=== PATIENT | female | born 1965 | race Caucasian/White ===

== ENCOUNTER 2020-10-23 12:31 | Inpatient (IN) | payer BC, SELFPAY ==
[~2020-10-23] VITALS: Ht 162.6 cm; Wt 65.8 kg
[~2020-10-23 12:31] MED LIST: BUPIVACAINE /EPINEPHRINE/PF 0.25% 30 ML VIAL INJ ONE; LR 1,000 ML IV.SOLN IV ONE; NS 1000 ML IV.SOLN IV ONE; NS IRRIG SOLN 1000 ML IR ONE; ONDANSETRON HCL 4 MG/2 ML VIAL IVP ONE; PROPOFOL 200MG/ 20ML VIAL (DIPRIVAN) IV ONE; ROCURONIUM BROMIDE 10 MG/ML (ZEMURON) IV ONE; SEVOFLURANE 15 MIN GAS INH ONE; SUCCINYLCHOLINE CHLORIDE 20 MG/ML(QUELICIN) IVP ONE; fentaNYL CITRATE/PF 100 MCG/2 ML AMP IVP ONE
--- NOTE | 2020-10-23 12:36 | NUR ---
Placed in room 05 . Placed on quality assurance monitor final, blood pressure machine and pulse oximeter. To gown for exam. Side rails up.
--- NOTE | 2020-10-23 12:38 | NUR ---
Pt brought by partner, A&Ox4, pt presents to ER with abdominal pain/nausea, pt also c/o back pain after hitting a corner of a counter yesterday , skin pink and warm, cap refill <3, VSS, respirations even and unlabored, cap refill <3, will cont to monitor.
[2020-10-23 12:40] VITALS: BP_SYST 175
--- NOTE | 2020-10-23 12:40 | NUR ---
ER at bedside examining patient.
[2020-10-23] MEDS ORDERED: IBUPROFEN 800 MG TABLET PO ONE (12:45)
[2020-10-23] MEDS ORDERED: ALPRAZolam 0.25 MG TABLET PO ONE (12:45)
--- NOTE | 2020-10-23 13:00 | NUR ---
Lab at bedside
[2020-10-23 13:01] LABS: BILIRUBIN,URINE NEGATIVE (NEGATIVE); BLOOD, URINE NEGATIVE (NEGATIVE); CLARITY/URINE CLEAR (CLEAR); COLOR,URINE YELLOW (YELLOW); GLUCOSE,URINE NEGATIVE (NEGATIVE); KETONES,URINE 3+ (NEGATIVE); LEUKOCYTE ESTERASE ,URINE NEGATIVE (NEGATIVE); NITRITE, URINE NEGATIVE (NEGATIVE); PH,URINE 7.5 (5.0-8.0); PROTEIN URINE 1+ (NEGATIVE); UROBILINOGEN,URINE 0.2 (0.2-1.0)
--- NOTE | 2020-10-23 13:16 | NUR ---
Patient transported to radiology via wheelchair, accompanied by staff.
[2020-10-23 13:21] LABS: ANION GAP 13 (5-15); BASOPHILS % (AUTO) 0.2 % (0.0-2.0); CALCIUM 9.1 mg/dL (8.4-11.0); CHLORIDE 103 mmol/L (98-107); CREATININE 0.78 mg/dL (0.55-1.30); EOSINOPHILS % (AUTO) 0.1 % (0.0-4.0); GLUCOSE 117 mg/dL (70-99); HEMATOCRIT 39.2 % (36-48); HEMOGLOBIN 13.5 g/dL (12.0-16.0); LYMPHOCYTES # (AUTO) 0.8 K/uL (1.0-5.5); LYMPHOCYTES % (AUTO) 7.1 % (20.5-51.5); MEAN CORPUSCULAR HEMOGLOBIN 32 pg (27-31); MEAN CORPUSCULAR HGB CONC 34 % (32-36); MEAN CORPUSCULAR VOLUME 93 fL (79.0-98.0); MONOCYTES # (AUTO) 0.4 K/uL (0.0-1.0); MONOCYTES % (AUTO) 3.4 % (1.7-9.3); NEUTROPHILS # (AUTO) 10.5 K/uL (1.8-7.7); NEUTROPHILS % (AUTO) 89.2 % (40.0-70.0); PLATELET COUNT (AUTO) 203 K/uL (130-430); RED BLOOD CELL COUNT(AUTO) 4.22 MIL/uL (4.2-6.2); RED CELL DISTRIBUTION WIDTH 12.2 % (9.0-15.0); SODIUM SERUM 139 mmol/L (136-145); UREA NITROGEN, BLOOD 18 mg/dL (8-21); WHITE BLOOD COUNT (AUTO) 11.8 K/uL (4.8-10.8)
[2020-10-23 13:24] LABS: PROTHROMBIN TIME 10.7 SECS (9.5-12.5)
[2020-10-23 13:27] LABS: ALANINE AMINOTRANSFERASE 25 U/L (12-78); ALBUMIN 4.1 g/dL (3.4-4.8); AMYLASE 56 U/L (0-100); ASPARTATE AMINOTRANSFERASE 17 U/L (10-37); LIPASE 58 U/L (73-393); TOTAL BILIRUBIN 0.7 mg/dL (0.0-1.0)
[2020-10-23 13:30] LABS: BACTERIA,URINE FEW /HPF (None Seen); RBC,URINE 0-3 /HPF (0-3); WBC,URINE 0-3 /HPF (0-3)
[2020-10-23 13:31] LABS: GFR AFRICAN AMERICAN 98 mL/min (>90)
[2020-10-23 13:42] LABS: C-REACTIVE PROTEIN QUANT < 0.2 mg/dL (0-0.5)
[2020-10-23] MEDS ORDERED: PIPERACILLIN/TAZO 3.38 GM in NS 50 ML IV ONE (14:00)
[2020-10-23] MEDS ORDERED: metroNIDAZOLE 500 mg/NS 100 ML IV ONE (14:00)
[2020-10-23] MEDS ORDERED: NACL 0.9% 1,000 ML IV ONE (14:00)
[2020-10-23] MEDS ORDERED: MORPHINE 2 MG/ML INJ. SYRINGE IVP ONE (14:00)
[2020-10-23] MEDS ORDERED: D5NS 1,000 ML IV SCH (14:00)
[2020-10-23] MEDS ORDERED: ONDANSETRON HCL 4 MG/2 ML VIAL IVP PRN (14:00)
--- NOTE | 2020-10-23 14:05 | NUR ---
EKG, covid and MRSA swab done
[2020-10-23] MEDS ORDERED: PIPERACILLIN/TAZOBACTAM 3.375 GM/VIAL (ZOSYN) IV ONE (14:23)
--- NOTE | 2020-10-23 14:37 | NUR ---
medicated w/ Morphine IVP per md order. Will reassess
--- NOTE | 2020-10-23 14:42 | NUR ---
pt. belongings done, pt takes no home meds
--- NOTE | 2020-10-23 15:26 | NUR ---
Patient will be admitted to care of Dr. Davies Admitted to med surg unit. Will go to room 117B. Belongings list completed. Complete and up to date summary report printed. SBAR report to be given at bedside with opportunity for questions.
--- NOTE | 2020-10-23 15:35 | NUR ---
ADMISSION NOTE Received patient from ER via heather, received report from PEELED POTATO INSPECTOR. Patient admitted with diagnosis of Appendicitis. Patient oriented to hospital routine, call light, toileting and safety-patient verbalized understanding.
[2020-10-23 16:14] VITALS: BP_SYST 141
--- NOTE | 2020-10-23 16:26 | NUR ---
CONSULTATION PAGED/CALLED Reason for Consultation: [] hosp mgmt Person Who was Notified: [] MATILDE Consulting Physician: [] DR Tim WAY Cotton Puller Specialty: [] HOSPITALIST Ordering Physician: [] DR CLAROS
--- NOTE | 2020-10-23 16:39 | NUR ---
CONSULTATION PAGED/CALLED Reason for Consultation: medical management Person Who was Notified: waldo Consulting Physician: casi brody Ordering Physician: karthik molina
[2020-10-23] MEDS: MORPHINE 2 MG/ML INJ. SYRINGE IVP PRN (17:26)
[2020-10-23] MEDS ORDERED: PANTOPRAZOLE SODIUM 40 MG/VIAL (PROTONIX) IVP ONE (17:30)
[2020-10-23] MEDS: PIPERACILLIN/TAZO 3.375/DEX-IS 50 ML IV SCH ×2 (17:39→23:02)
--- NOTE | 2020-10-23 18:52 | NUR ---
CLOSING NOTES: PATIENT RESTING IN BED. NO SIGNS OF ACUTE DISTRESS NOTED. FALL AND SAFETY PRECAUTION REINFORCED. CALL LIGHT WITHIN REACH.
--- NOTE | 2020-10-23 19:30 | NUR ---
Opening notes Received report. Patient is resting in bed, no signs of distress noted. Breathing even and unlabored on room air. Patient complains of pain, prn pain medication to be administered. IVF infusing well. Patient ambulatory with steady gait. Family at bedside. No other needs. Call light with the patient. Safety precautions in place.
[2020-10-23 20:00] VITALS: BP_SYST 158
[2020-10-23] MEDS: MORPHINE 4 MG INJ. 4 MG/ML VIAL IVP PRN (20:35)
--- NOTE | 2020-10-23 20:40 | NUR ---
CT SCAN Patient off to CT scan via wheelchair accompanied by on site wastewater systems technician. No signs of distress noted.
--- NOTE | 2020-10-23 21:20 | NUR ---
Spoke with Dr. Tao Informed of CTAP with contrast results. Doctor stated he will do surgery tomorrow and will call seasonal warehouse associate for surgery schedule. Also informed doctor of patient HR 45. Orders for stat EKG and to have patient medically cleared.
--- NOTE | 2020-10-23 21:20 | NUR ---
paged paged doctor solitario
[2020-10-23] MEDS ORDERED: TEMAZEPAM 7.5 MG CAPSULE PO PRN (21:30)
--- NOTE | 2020-10-23 22:50 | NUR ---
Spoke with Dr. Tucker Mccall MD about patient EKG results. stated that is patient's baseline and she is medically cleared for surgery tomorrow morning. No need for cardio consult.
[2020-10-23] MEDS: ONDANSETRON HCL 4 MG/2 ML VIAL IVP PRN (22:52)
[2020-10-23] MEDS: D5LR 1,000 ML IV SCH (22:52)
[2020-10-24] VITALS (11 sets, daily range): BP systolic 122–155
[2020-10-24] MEDS: MORPHINE 4 MG INJ. 4 MG/ML VIAL IVP PRN ×4 (00:36→22:44)
[2020-10-24] MEDS: D5LR 1,000 ML IV SCH ×4 (01:40→22:33)
[2020-10-24] MEDS: PIPERACILLIN/TAZO 3.375/DEX-IS 50 ML IV SCH ×4 (05:25→23:09)
[2020-10-24] MEDS: PANTOPRAZOLE SODIUM 40 MG/VIAL (PROTONIX) IVP SCH ×2 (05:25→17:17)
[2020-10-24 06:51] LABS: BASOPHILS % (AUTO) 0.1 % (0.0-2.0); EOSINOPHILS % (AUTO) 0.1 % (0.0-4.0); HEMATOCRIT 37.1 % (36-48); HEMOGLOBIN 12.6 g/dL (12.0-16.0); LYMPHOCYTES # (AUTO) 0.5 K/uL (1.0-5.5); LYMPHOCYTES % (AUTO) 5.2 % (20.5-51.5); MEAN CORPUSCULAR HEMOGLOBIN 32 pg (27-31); MEAN CORPUSCULAR HGB CONC 34 % (32-36); MEAN CORPUSCULAR VOLUME 94 fL (79.0-98.0); MONOCYTES # (AUTO) 0.6 K/uL (0.0-1.0); MONOCYTES % (AUTO) 6.1 % (1.7-9.3); NEUTROPHILS % (AUTO) 88.5 % (40.0-70.0); PLATELET COUNT (AUTO) 134 K/uL (130-430); RED BLOOD CELL COUNT(AUTO) 3.97 MIL/uL (4.2-6.2); RED CELL DISTRIBUTION WIDTH 12.4 % (9.0-15.0)
--- NOTE | 2020-10-24 07:07 | NUR ---
Closing notes Patient is resting in bed, no signs of distress noted. Breathing even and unlabored on room air. No complaints of pain at this time. IVF infusing well. NPO status maintained. All needs met throughout the shift. call light with the patient. Safety precautions in place. Care endorsed to day shift RN.
[2020-10-24 07:32] LABS: ALBUMIN 3.3 g/dL (3.4-4.8); C-REACTIVE PROTEIN QUANT 2.1 mg/dL (0-0.5); CREATININE 0.79 mg/dL (0.55-1.30); POTASSIUM 3.4 mmol/L (3.5-5.1); TOTAL BILIRUBIN 1.3 mg/dL (0.0-1.0)
[2020-10-24] MEDS: ONDANSETRON HCL 4 MG/2 ML VIAL IVP PRN ×2 (07:35→16:08)
--- NOTE | 2020-10-24 07:35 | NUR ---
A/OX4, BUT C/O 6/10 PAIN AT THE LOWER LEFT ABDOMEN. MORPHINE 2MG IS GIVEN. CHG BATH IS PROVIDED. ON RA. CALL LIGHT IN PLACE, BED LOCKED AT THE LOWEST POSITION, WILL CONTINUE TO MONITOR.
[2020-10-24] MEDS: MORPHINE 2 MG/ML INJ. SYRINGE IVP PRN ×2 (07:36→16:16)
[2020-10-24 08:58] LABS: ERYTHROCYTE SEDIMENTATION RATE 11 MM/HR (0-20)
--- NOTE | 2020-10-24 09:20 | NUR ---
PATIENT IS TAKEN TO OR. DR. CLAROS AND DR. INFANTE AT BEDSIDE TO DISCUSS ON POC.
[2020-10-24] MEDS ORDERED: NALOXONE HCL 0.4 MG/ML AMP (NARCAN) IVP PRN (10:15)
[2020-10-24] MEDS ORDERED: METOCLOPRAMIDE HCL 10 MG/2 ML VIAL IVP PRN (10:15)
[2020-10-24] MEDS ORDERED: MEPERIDINE HCL/PF 25 MG/ML DISP.SYRIN IVP PRN (10:15)
[2020-10-24] MEDS ORDERED: HYDROmorphone 1 MG/ML INJ. CARTRIDGE IVP PRN (10:15)
[2020-10-24] MEDS ORDERED: KETOROLAC TROMETHAMINE 30 MG VIAL IVP PRN (10:15)
[2020-10-24] MEDS ORDERED: KETOROLAC TROMETHAMINE 30 MG VIAL ONE (11:35)
--- NOTE | 2020-10-24 12:10 | NUR ---
patient has returned from OR. V/S stable at this time.
--- NOTE | 2020-10-24 12:30 | NUR ---
FAMILY AT BEDSIDE. NO SIGNS OF DISTRESS NOTED.
[2020-10-24] MEDS ORDERED: POTASSIUM CHLORIDE 20 MEQ TAB.PRT.SR PO ONE (15:45)
--- NOTE | 2020-10-24 17:00 | NUR ---
patient c/o right abdominal pain despite of 2mg morphine. 4 mg morphine is given. Will reassess.
[2020-10-24] MEDS: traMADol HCL HCL 50 MG TABLET (ULTRAM) PO SCH ×2 (17:18→23:09)
--- NOTE | 2020-10-24 17:30 | NUR ---
patient is resting at this time. No signs of distress noted.
--- NOTE | 2020-10-24 21:20 | NUR ---
PT AMBULATED TO THE BATHROOM TO URINATE AND BACK TO BED WITH STABLE GAIT.
--- NOTE | 2020-10-24 22:44 | NUR ---
MORPHINE 4MG GIVEN IV FOR C/O 810 ABDOMINAL INCISIONAL PAIN. PT DECLINED BED ALARM. PT WAS INSTRUCTED TO CALL FOR ASSISTANCE BEFORE GETTING OUT OF BED IF SHE FEELS DIZZY OR DROWSY AND PT VERBALIZED UNDERSTANDING. CALL LIGHT IS WITH PT AND BED IS IN THE LOWEST AND LOCKED POSITIONS.
[2020-10-25] VITALS: BP_SYST 132
[2020-10-25] MEDS: PANTOPRAZOLE SODIUM 40 MG/VIAL (PROTONIX) IVP SCH ×2 (06:17→17:11)
[2020-10-25] MEDS: PIPERACILLIN/TAZO 3.375/DEX-IS 50 ML IV SCH ×3 (06:17→17:12)
[2020-10-25] MEDS: traMADol HCL HCL 50 MG TABLET (ULTRAM) PO SCH ×3 (06:17→17:12)
[2020-10-25 07:58] VITALS: BP_SYST 145
[2020-10-25 08:14] LABS: BASOPHILS % (AUTO) 0.5 % (0.0-2.0); EOSINOPHILS % (AUTO) 0.4 % (0.0-4.0); HEMATOCRIT 32.5 % (36-48); HEMOGLOBIN 11.1 g/dL (12.0-16.0); LYMPHOCYTES # (AUTO) 0.9 K/uL (1.0-5.5); LYMPHOCYTES % (AUTO) 14.7 % (20.5-51.5); MEAN CORPUSCULAR HEMOGLOBIN 32 pg (27-31); MEAN CORPUSCULAR HGB CONC 34 % (32-36); MEAN CORPUSCULAR VOLUME 95 fL (79.0-98.0); MONOCYTES # (AUTO) 0.4 K/uL (0.0-1.0); NEUTROPHILS % (AUTO) 78.4 % (40.0-70.0); PLATELET COUNT (AUTO) 110 K/uL (130-430); RED BLOOD CELL COUNT(AUTO) 3.44 MIL/uL (4.2-6.2); RED CELL DISTRIBUTION WIDTH 12.6 % (9.0-15.0); WHITE BLOOD COUNT (AUTO) 6.3 K/uL (4.8-10.8)
[2020-10-25 08:30] LABS: ALBUMIN 2.8 g/dL (3.4-4.8); CREATININE 0.69 mg/dL (0.55-1.30); POTASSIUM 3.3 mmol/L (3.5-5.1); TOTAL BILIRUBIN 1.2 mg/dL (0.0-1.0)
[2020-10-25] MEDS: D5LR 1,000 ML IV SCH (08:34)
[2020-10-25] MEDS: MORPHINE 2 MG/ML INJ. SYRINGE IVP PRN ×2 (08:38→21:03)
[2020-10-25] MEDS ORDERED: POTASSIUM CHLORIDE 20 MEQ TAB.PRT.SR PO ONE (10:15)
[2020-10-25] MEDS: ACETAMINOPHEN 325 MG TABLET PO PRN ×2 (11:45→17:12)
[2020-10-25 12:00] VITALS: BP_SYST 166
[2020-10-25 16:00] VITALS: BP_SYST 150
--- NOTE | 2020-10-25 18:55 | NUR ---
Note Pt has been ambulating in room and to restroom with IV pole and steady gait. Pt's 3 lap sites intact and dressing CDI. Pt's IV intact and patent right forearm. Pt checked on q1' and PRN all shift for needs and care. Dr Tao was at pt's bedside explaining surgery outlook and plan of care. Pt's pain tolerable at this time. Pt encouraged to use IS 10X q1' while awake. Pt able to tolerate Full liquids diet all shift. No needs noted at this time. Call light within reach.
[2020-10-25] MEDS: D5NS 1,000 ML IV SCH (18:57)
[2020-10-26] MEDS: PIPERACILLIN/TAZO 3.375/DEX-IS 50 ML IV SCH ×3 (00:54→12:02)
[2020-10-26] MEDS: traMADol HCL HCL 50 MG TABLET (ULTRAM) PO SCH ×3 (06:00→12:02)
[2020-10-26] MEDS: D5NS 1,000 ML IV SCH ×2 (06:37→12:01)
[2020-10-26] MEDS: PANTOPRAZOLE SODIUM 40 MG/VIAL (PROTONIX) IVP SCH (06:37)
[2020-10-26 07:07] LABS: BASOPHILS % (AUTO) 0.7 % (0.0-2.0); EOSINOPHILS # (AUTO) 0.1 K/uL (0.0-0.4); EOSINOPHILS % (AUTO) 2.5 % (0.0-4.0); HEMATOCRIT 34.3 % (36-48); HEMOGLOBIN 11.7 g/dL (12.0-16.0); LYMPHOCYTES # (AUTO) 1.3 K/uL (1.0-5.5); LYMPHOCYTES % (AUTO) 23.2 % (20.5-51.5); MEAN CORPUSCULAR HEMOGLOBIN 32 pg (27-31); MEAN CORPUSCULAR HGB CONC 34 % (32-36); MEAN CORPUSCULAR VOLUME 95 fL (79.0-98.0); MONOCYTES # (AUTO) 0.4 K/uL (0.0-1.0); MONOCYTES % (AUTO) 7.1 % (1.7-9.3); NEUTROPHILS # (AUTO) 3.7 K/uL (1.8-7.7); NEUTROPHILS % (AUTO) 66.5 % (40.0-70.0); PLATELET COUNT (AUTO) 129 K/uL (130-430); RED BLOOD CELL COUNT(AUTO) 3.62 MIL/uL (4.2-6.2); RED CELL DISTRIBUTION WIDTH 12.2 % (9.0-15.0); WHITE BLOOD COUNT (AUTO) 5.6 K/uL (4.8-10.8)
[2020-10-26 08:22] VITALS: BP_SYST 163
--- NOTE | 2020-10-26 08:25 | NUR ---
Opening note Patient is resting in bed A&O x4, no complaint of pain or discomfort, no signs or symptoms of respiratory distress. IV is infusing no signs or symptoms of infiltration. Educated patient on plan of care, patient verbalized understanding. Bed is in lowest position fall and aspiration precautions are in place, will continue to monitor.
[2020-10-26 11:48] VITALS: BP_SYST 149
[2020-10-26 11:51] VITALS: BP_SYST 149
[2020-10-26 12:18] VITALS: BP_SYST 149
[2020-10-26 12:35] VITALS: BP_SYST 160
[2020-10-26 14:18] VITALS: BP_SYST 160
[2020-10-26] MEDS ORDERED: TRAM50TA2 PO (14:26)
[2020-10-26] MEDS ORDERED: AMOX-426 PO (14:28)
[2020-10-26] MEDS ORDERED: L.RH1CAP PO (14:30)
--- NOTE | 2020-10-27 08:15 | NUR ---
Disposition 01
== END 2020-10-26 15:44 | disposition home or self-care (01) | DRG 339 ==
LOC: SED 12:31 → SMU 13:58
PROVIDERS: ADMIT Internal Medicine; ATTEND Internal Medicine
PROC: 0DTJ4ZZ Resection of Appendix, Percutaneous Endoscopic Approach (ICD-10-PCS; principal; 2020-10-24 09:25)
DX: K35.33 Acute appendicitis with perforation, localized peritonitis, and gangrene, with abscess (principal); E44.1 Mild protein-calorie malnutrition; K66.0 Peritoneal adhesions (postprocedural) (postinfection); E87.6 Hypokalemia; Z68.24 Body mass index [BMI] 24.0-24.9, adult; Z20.822 Contact with and (suspected) exposure to COVID-19
CPT/HCPCS: 36415; 71045; 71250-TC; 76376; 80053; 81000; 82150; 83605; 83690; 84484; 84703; 85025; 85610-TC; 85651-TC; 85730-TC; 86140; 86886; 86900; 86901; 87070; 87070-TC; 87075-TC; 87081; 88304; 93005; 96365; 96367; 96375; 99285; C1727; C9113; J0330; J1885; J2270; J2405; J2543; J2704; J3010; J3490; J7030; J7120; Q9967